=== PATIENT | male | born 1995 | race Caucasian/White ===

== ENCOUNTER 2018-03-27 10:46 | Day surgery (SDC) | payer OTHER ==
[2018-03-26 16:53] VITALS: BMI 45.0
[2018-03-27] MEDS ORDERED: Oxymetazoline HCl 0.05% ( 15 ML ) ONE ×2 (11:40→12:07)
[2018-03-27] MEDS ORDERED: Bacitracin Zinc Ointment 30 gm TUBE ONE (12:07)
[2018-03-27] MEDS ORDERED: Lidocaine 1% w/Epinephrine 1:100K 30 ML VIAL ONE (12:07)
[2018-03-27] MEDS ORDERED: Fentanyl 100 MCG/2 ML VIAL ONE ×3 (12:13→14:24)
[2018-03-27] MEDS ORDERED: Famotidine/PF 20 mg/2ml Vial ONE (12:13)
[2018-03-27] MEDS ORDERED: Morphine 4 MG/ML VIAL ONE (15:12)
[2018-03-27] MEDS ORDERED: HYDROcodone/Acetaminophen 5/325 mg Tablet ONE (15:12)
[2018-03-27] MEDS ORDERED: PROPOFOL 200 MG/20 ML VIAL ONE (16:00)
[2018-03-27] MEDS ORDERED: Lidocaine 1% PF 5 ML VIAL ONE (16:00)
[2018-03-27] MEDS ORDERED: Succinylcholine Chloride 20 MG/ML 10 ml SYRINGE FS ONE (16:00)
[2018-03-27] MEDS ORDERED: Ondansetron HCl/PF 4 MG/2 ML Vial ONE (16:00)
[2018-03-27] MEDS ORDERED: Ketorolac Tromethamine 30 MG/ML VIAL ONE (16:00)
--- NOTE | 2018-03-28 11:14 | OP ---
DATE OF PROCEDURE: 03/27/2018 PREOPERATIVE DIAGNOSIS: Displaced nasal fracture. POSTOPERATIVE DIAGNOSIS: Traumatic displaced right nasal fracture. PROCEDURE PERFORMED: Closed reduction of displaced nasal fracture with external splinting. PROCEDURE IN DETAIL: After consent was obtained, the patient was identified, brought to the operatin g room and placed on the table in supine position. Anesthesia was obtained. The patient was [place] for surgery. The nose was decongested with topical Afrin and the patient was positioned for surg daphne. A forceps was used to reduce the nasal bones and adjust the left outfracture back on the maxill armin crest. The displaced right nasal bone was relocated laterally and the bony pyramid was reestabli shed. Gelfoam was then used intranasally to support the depressed fractures as a Harper splint was a pplied externally in standard fashion. Prior to placing the Gelfoam Nicholas splints were placed to ser ve as a base against which the Gelfoam was positioned. The Nicholas splint was suture secured to the ca udal septum and the patient was awakened, extubated, and taken to recovery room where he remained in stable condition prior to discharge home.
== END 2018-03-27 16:00 | disposition home or self-care (01) ==
LOC: SDC 10:46
PROVIDERS: ATTEND Specialist
PROC: 0NSBXZZ Reposition Nasal Bone, External Approach (ICD-10-PCS; principal; 2018-03-27)
DX: S02.2XXA Fracture of nasal bones, initial encounter for closed fracture (principal); F17.210 Nicotine dependence, cigarettes, uncomplicated; Z79.899 Other long term (current) drug therapy; Z88.2 Allergy status to sulfonamides; Z88.5 Allergy status to narcotic agent; W50.0XXA Accidental hit or strike by another person, initial encounter; Y92.149 Unspecified place in prison as the place of occurrence of the external cause; Y99.0 Civilian activity done for income or pay
CPT/HCPCS: 96374; J1885; J2001; J2270; J2405; J2704; J3010; J3490; S0028